=== PATIENT | female | born 2000 | race Caucasian/White ===

== ENCOUNTER 2019-09-14 06:26 | Day surgery (SDC) | payer BC ==
[~2019-09-14] VITALS: Ht 165.1 cm; Wt 63.5 kg
--- NOTE | ~2019-09-14 | HP ---
PATIENT: BREANNA CURRY MEDICAL RECORD: [id number] ACCOUNT: [id number] [place]ATION:[facility] : 98 ADMISSION DATE: 09/14/19 PCP: SHITAL HUANG MD HISTORY AND PHYSICAL EXAMINATION HISTORY OF PRESENT ILLNESS: Breanna is 19. She is having problems with chronic strep pharyngitis. She has been admitted for tonsillectomy and adenoidectomy. PAST MEDICAL HISTORY: Otherwise negative. PAST SURGICAL HISTORY: Appendectomy in 2012. CURRENT MEDICATIONS: Alexia. ALLERGIES: PENICILLIN. PHYSICAL EXAMINATION: GENERAL: Healthy-appearing, developmentally normal. FACE: Normal, symmetric, no lesions. EYES: Sclerae and conjunctivae are normal. EARS: Canals and TMs are normal. NOSE: No mass, polyps or drainage. ORAL CAVITY AND OROPHARYNX: 4+ cryptic tonsils with tonsilliths. NECK: No masses, no adenopathy. CHEST: Clear. CARDIOVASCULAR: Regular rate and rhythm, no murmur. EXTREMITIES: Normal. IMPRESSION: Chronic pharyngitis and caseous tonsillitis. PLAN: Tonsillectomy and adenoidectomy. TRANSINT:[id number] Voice Confirmation ID: [id number] DOCUMENT ID: [id number] NINI HOLT MD CC: [id number] DICTATION DATE: 09/11/19 0849 [employer]OMOBILE MECHANIC SUPERVISOR: 09/11/19 1007 [facility] [address] [place] [address]
--- NOTE | ~2019-09-14 | OP ---
[facility] [id number] :98 [facility]: SURGEON: NINI GRESHAM MD DATE OF OPERATION: 09/14/2019 PREOPERATIVE DIAGNOSIS: Chronic pharyngitis. POSTOPERATIVE DIAGNOSIS: Chronic pharyngitis. PROCEDURE: Tonsillectomy and adenoidectomy. SURGEON: Nnii Gresham MD ANESTHESIA: General orotracheal. BLOOD LOSS: Less than 5 cc. SPECIMENS: Right and left tonsil. COMPLICATIONS: None. DISPOSITION: Recovery stable. PROCEDURE NOTE: She was brought to the operating room and placed in supine position, sedated and intubated by anesthesia. The eyes were taped. Table was turned 90 degrees. Head drapes were applied and she was positioned for tonsillectomy. Using a headlight, a Benjamin-Akshat mouth gag was carefully inserted and elevated on a towel on the chest. The palate was examined and palpated. It was normal. A red rubber catheter was placed through the right side of the nose and the pharynx and grasped with tonsil clamp to retract the soft palate. Using a mirror, the nasopharynx was examined. She had actually quite a bit of adenoid tissue up at the choana for age. Suction cautery on a setting of 35 was used to ablate and suction the adenoid pad with no significant bleeding. The choanae and eustachian orifices were normal bilaterally. The red rubber catheter was let down and removed. The right tonsil was grasped at the superior pole with a straight Allis clamp. Spatula tip cautery on a setting of 8 was used to dissect out the tonsil along its capsule, preserving the anterior and posterior tonsillar pillar. The left tonsil was removed in the same fashion. She had a tremendous amount of tonsilliths. After that was complete, both sides of the nose were irrigated with saline. The pharynx was suctioned. Tonsillar fossae were agitated. Suction cautery on a setting of 18 was used to control minimal oozing. With the field clean and dry, the Benjamin-Akshat mouth gag was let down and removed. She was awakened, extubated, and transported to recovery in good condition. No complications. TRANSINT:[id number] Voice Confirmation ID: [id number] DOCUMENT ID: [id number] OPERATIVE REPORT [id number] ANTOINETTE,NINI ANNE MD CC: [id number] DICTATION DATE: 09/14/19 1020 [employer] QUAL[employer] ENGINEER: 09/14/19 1600 [facility] 09/14/19 [place] [id number] [place] [id number]
[~2019-09-14 06:26] MED LIST: YAZ PO
[2019-09-14 06:49] LABS: HEMATOCRIT 41.5 % (36.0-48.0); HEMOGLOBIN 14.2 g/dL (12-16); MCH 30.1 pg (26.0-34.0); MCHC 34.2 g/dL (31.0-37.0); MCV 88.1 fL (80.0-100.0); MEAN PLATELET VOLUME 9.7 fL (7.4-10.4); RBC 4.71 10x6/uL (4.00-5.40); RDW 12.2 % (11.5-14.5); WBC 7.1 10x3/uL (4.8-10.8)
[2019-09-14 07:08] VITALS: BP 107/79; Ht 165.1 cm; Wt 63.5 kg
[2019-09-14 07:24] LABS: HCG URINE NEGATIVE (NEGATIVE)
--- NOTE | 2019-09-14 08:00 | NUR ---
DR. CLAYTON NOTIFIED AND REVIEWED PT'S BEHAVIOR AND ASSESSMENT RESULTS. PT IS A LOW RISK PER DR. CLAYTON. DR. CLAYTON STATED TO GIVE RESOURCES TO PT AT TIME OF DISCHARGE. NO FURTHER ORDERS AT THIS TIME. RESOURCES REVIEWED WITH PT AND SHE VERBALIZED UNDERSTANDING.
--- NOTE | 2019-09-14 12:08 | NUR ---
DC INSTRUCTIONS GIVEN TO PT/FAMILY. STATE UNDERSTANDING. DC'D IV CATH FULLY INTACT.
--- NOTE | 2019-09-14 12:14 | NUR ---
PT LEFT UNIT VIA WC AT 1214
== END 2019-09-14 12:14 | disposition home or self-care (01) ==
LOC: D.OPS 06:26 → D.PAN 11:00 → D.OPS 11:00
PROVIDERS: Anesthesiology; ATTEND Otolaryngology
DX: J31.2 Chronic pharyngitis (principal); J03.90 Acute tonsillitis, unspecified